=== PATIENT | male | born 1955 | race African-American/Black ===

== ENCOUNTER 2017-12-06 05:39 | Day surgery (SDC) | payer BC ==
--- NOTE | 2017-12-02 12:06 | Opthalmology H&P ---
Ophthalmology H&P H&P Chief Complaint: decreased vision in left eye HPI Vision Affects Ability to: read, drive, manage personal affairs HPI Narrative PATIENT WITH DENSE CATARACT ON LEFT EYE C/O BLURRY VISION DIFFICULTIES DRIVING, READING AND LIGHT SENSITIVITY Exam Visual Acuity: OD 20/25 OS HAND MOTION Tension: OD:14 OS:14 Eye Exam: normal OU: external exam, palpebral fissure-width, marginal reflex distance, levator function, corneas, anterior chambers; findings: lens - LEFT EYE WHITE, fundus exam - POOR VIEW LEFT EYE Assessment/Plan Diagnosis: (1) Cataract mature, total senile Treatment Plan: cataract extraction w/ lens implant Goals of Treatment: improvement of vision, enhance quality of life Attestation Attestation The risks and benefits of the surgery as well as alternative procedures were explained to the patient in detail. Osvaldo Shelton MD Dec 02, 2017 12:06
--- NOTE | 2017-12-02 12:09 | Pre-Procedure Note/Attestation ---
Pre-Procedure Note/Attestation Complete Prior to Procedure Planned Procedure: left Procedure Narrative: CATARACT EXTRACTION WITH IOL IMPLANT LEFT EYE Indications for Procedure Pre-Operative Diagnosis: CATARACT MATURE LEFT EYE Attestation I attest that I discussed the nature of the procedure; its benefits; risks and complications; and alternatives (and the risks and benefits of such alternatives ), prior to the procedure, with the patient (or the patient's legal account manager sales representative). I attest that, if there was a reasonable possibility of needing a blood transfusion, the patient (or the patient's legal account manager sales representative) was given the [facility] standardized written summary, pursuant to the Orlin [place] Blood Safety Act ([place] Health and Safety Code # 1645, as amended). I attest that I re-evaluated the patient just prior to the surgery and that there has been no change in the patient's H&P, except as documented below: Osvaldo Shelton MD Dec 02, 2017 12:09
[~2017-12-06] VITALS: Ht 182.9 cm; Wt 93.0 kg
[2017-12-06] VITALS (7 sets, daily range): BP systolic 111–135; BP diastolic 72–86
[~2017-12-06 05:39] MED LIST: B12 PO; BIOFLEX TABLET1 EACH PO; FISH OIL 500 M1 EAC4 PO; Vit C PO
[2017-12-06 06:23] LABS: BASOPHILS % (AUTO) 1.8 % (0.0-2.0); EOSINOPHILS % (AUTO) 1.2 % (0.0-3.0); HEMATOCRIT 44.6 % (42.0-52.0); HEMOGLOBIN 15.6 G/DL (14.2-18.0); LYMPHOCYTES % (AUTO) 38.2 % (20.0-45.0); MEAN CORPUSCULAR VOLUME 91 FL (80-99); MONOCYTES % (AUTO) 12.9 % (1.0-10.0); NEUTROPHILS % (AUTO) 45.9 % (45.0-75.0); PLATELET COUNT 234 K/UL (150-450); RED BLOOD COUNT 4.89 M/UL (4.70-6.10); RED CELL DISTRIBUTION WIDTH 11.6 % (11.6-14.8); WHITE BLOOD COUNT 4.2 K/UL (4.8-10.8)
[2017-12-06] MEDS: Phenylephrine 10% Opth Soln 5ml LEFT EYE SCH ×3 (06:37→06:57)
[2017-12-06] MEDS: Cyclopentolate 1% Opth Sol 2ml LEFT EYE SCH ×3 (06:37→06:57)
[2017-12-06] MEDS: Tobramycin Op Soln 0.3% 5ml LEFT EYE SCH ×3 (06:37→06:57)
[2017-12-06] MEDS: Diclofenac Sod 0.1% Op Soln LEFT EYE SCH ×3 (06:37→06:57)
[2017-12-06] MEDS: Tropicamide 1% Opth 15ml Soln LEFT EYE SCH ×3 (06:37→06:57)
[2017-12-06] MEDS ORDERED: Lidocaine 4% Amp ONE (06:44)
[2017-12-06] MEDS ORDERED: EPINEPHrine 1mg/1ml Amp ONE (06:44)
[2017-12-06] MEDS ORDERED: Maxitrol Opth Oint 3.5gm ONE (06:44)
[2017-12-06] MEDS ORDERED: Dexamethasone 4mg/ml vial ONE (06:45)
[2017-12-06] MEDS ORDERED: BSS 15ml BTL ONE (06:45)
[2017-12-06] MEDS ORDERED: acetaZOLAMIDE 500mg Inj ONE (06:45)
[2017-12-06] MEDS ORDERED: BSS 500ml btl ONE (06:45)
[2017-12-06] MEDS ORDERED: Sodium Hyaluronate 10 mg/ml 0.85ml ONE (06:46)
[2017-12-06] MEDS ORDERED: Povidone-Iodine 5% opth solution ONE (06:46)
[2017-12-06] MEDS ORDERED: Sodium Hyaluronate 14 mg/ml 0.85ml ONE (06:46)
[2017-12-06 06:47] LABS: ALANINE AMINOTRANSFERASE 31 U/L (12-78); ALBUMIN 3.3 G/DL (3.4-5.0); ALBUMIN/GLOBULIN RATIO 0.9 (1.0-2.7); ALKALINE PHOSPHATASE 89 U/L (46-116); ANION GAP 7 mmol/L (5-15); ASPARTATE AMINO TRANSFERASE 20 U/L (15-37); BILIRUBIN,TOTAL 0.3 MG/DL (0.2-1.0); BLOOD UREA NITROGEN 12 mg/dL (7-18); CALCIUM 8.7 MG/DL (8.5-10.1); CARBON DIOXIDE 25 MMOL/L (21-32); CHLORIDE 108 MMOL/L (98-107); SODIUM 140 MMOL/L (136-145)
[2017-12-06] MEDS ORDERED: Carbachol 0.01% Op Soln 1.5ml vial ONE (06:52)
[2017-12-06] MEDS ORDERED: Proparacaine 0.5% Opth Soln 15ml LEFT EYE ONE (07:00)
[2017-12-06] MEDS ORDERED: Tetracaine 0.5% Opth 4ml Soln LEFT EYE ONE (07:00)
[2017-12-06] MEDS ORDERED: Akten 3.5% 1ml Btl LEFT EYE ONE (07:00)
[2017-12-06] MEDS ORDERED: NS Irrig 1000ml ONE (07:15)
[2017-12-06] MEDS ORDERED: LR 1000ml ONE (07:15)
[2017-12-06] MEDS ORDERED: Midazolam 2mg/2ml Inj ONE (07:15)
[2017-12-06] MEDS ORDERED: Sterile Water Irrig 1000ml IRRIG ONE (07:15)
[2017-12-06] MEDS ORDERED: fentaNYL 100 mcg/2 mL IV ONE (07:15)
[2017-12-06] MEDS ORDERED: Pred Forte 1% Opth Susp 1ml ONE (07:28)
[2017-12-06] MEDS ORDERED: LR 1000ml 1,000 ML IVLG SCH (07:44)
[2017-12-06] MEDS ORDERED: fentaNYL 100 mcg/2 mL IV PRN (07:45)
[2017-12-06] MEDS ORDERED: DiphenhydrAMINE 50mg/ml Inj IVP PRN (07:45)
--- NOTE | 2017-12-06 07:48 | Anethesia Preoperative Eval ---
Anesthesia Pre-op PMH/ROS General Date of Evaluation: Dec 06, 2017 Time of Evaluation: 07:15 Anesthesiologist: Yulissa ASA Score: ASA 1 Mallampati Score Class I : Soft palate, uvula, fauces, pillars visible Class II: Soft palate, uvula, fauces visible Class III: Soft palate, base of uvula visible Class IV: Only hard plate visible Mallampati Classification: Class II Surgeon: Cat Diagnosis: Cataract left eye Surgical Procedure: Cataract extraction with IOL Anesthesia History: none Family History: no anesthesia problems Allergies: Coded Allergies: No Known Allergies (Unverified , 12/02/17) Patient NPO?: Yes NPO Date: Dec 05, 2017 NPO Time: 20:00 Past Medical History Cardiovascular: Denies: HTN, CAD, [place], valve dz, arrhythmia, other Pulmonary: Denies: asthma, COPD, JAHAIRA, other Gastrointestinal/Genitourinary: Denies: GERD, CRI, ESRD, other Neurologic/Psychiatric: Denies: dementia, CVA, depression/anxiety, TIA, other Endocrine: Denies: DM, hypothyroidism, steroids, other HEENT: Reports: cataract (L); Denies: cataract (R), glaucoma, ALATNA (L), ALATNA (R), other Hematology/Immune: Denies: anemia, DVT, bleeding disorder, other Musculoskeletal/Integumentary: Denies: OA, RA, DJD, DDD, edema, other PMH Narrative: Denies PSxH Narrative: No prior surgery Anesthesia Pre-op Phys. Exam Physician Exam Last Vital Signs Date Time Temp Pulse Resp B/P (MAP) Pulse Ox O2 Delivery O2 Flow Rate FiO2 12/06/17 06:45 Room Air 12/06/17 06:40 97.0 55 18 111/72 96 Constitutional: NAD Neurologic: CN 2-12 intact Cardiovascular: RRR, no M/R/G Respiratory: CTA Gastrointestinal: S/NT/ND Airway Exam Mallampati Score: Class II MO: full ROM: full Teeth: intact Anesthesia Pre-op A/P Labs Hematology Test 12/06/17 06:00 White Blood Count 4.2 K/UL (4.8-10.8) L Red Blood Count 4.89 M/UL (4.70-6.10) Hemoglobin 15.6 G/DL (14.2-18.0) Hematocrit 44.6 % (42.0-52.0) Mean Corpuscular Volume 91 FL (80-99) Mean Corpuscular Hemoglobin 32.0 PG (27.0-31.0) H Mean Corpuscular Hemoglobin Concent 35.1 G/DL (32.0-36.0) Red Cell Distribution Width 11.6 % (11.6-14.8) Platelet Count 234 K/UL (150-450) Mean Platelet Volume 6.4 FL (6.5-10.1) L Neutrophils (%) (Auto) 45.9 % (45.0-75.0) Lymphocytes (%) (Auto) 38.2 % (20.0-45.0) Monocytes (%) (Auto) 12.9 % (1.0-10.0) H Eosinophils (%) (Auto) 1.2 % (0.0-3.0) Basophils (%) (Auto) 1.8 % (0.0-2.0) Chemistry Test 12/06/17 06:00 Sodium Level 140 MMOL/L (136-145) Potassium Level 4.0 MMOL/L (3.5-5.1) Chloride Level 108 MMOL/L (98-107) H Carbon Dioxide Level 25 MMOL/L (21-32) Anion Gap 7 mmol/L (5-15) Blood Urea Nitrogen 12 mg/dL (7-18) Creatinine 1.0 MG/DL (0.55-1.30) Estimat Glomerular Filtration Rate > 60 mL/min (>60) Glucose Level 104 MG/DL (74-106) Calcium Level 8.7 MG/DL (8.5-10.1) Total Bilirubin 0.3 MG/DL (0.2-1.0) Aspartate Amino Transf (AST/SGOT) 20 U/L (15-37) Alanine Aminotransferase (ALT/SGPT) 31 U/L (12-78) Alkaline Phosphatase 89 U/L (46-116) Total Protein 6.8 G/DL (6.4-8.2) Albumin 3.3 G/DL (3.4-5.0) L Globulin 3.5 g/dL Albumin/Globulin Ratio 0.9 (1.0-2.7) L Studies Pre-op Studies: EKG - SB Risk Assessment & Plan Assessment: Healthy male for cataract extraction Plan: MAC Status Change Before Surgery: No Pre-Antibiotics Drug: None Orlin Duenas MD Dec 06, 2017 07:48
--- NOTE | 2017-12-06 07:49 | Immediate Post-Op Evaluation ---
Immediate Post-Op Evalulation Immediate Post-Op Evalulation Procedure: Cataract extraction with IOL left eye Date of Evaluation: Dec 06, 2017 Time of Evaluation: 08:15 IV Fluids: 475 Blood Pressure Systolic: 126 Blood Pressure Diastolic: 74 Pulse Rate: 54 Respiratory Rate: 20 O2 Sat by Pulse Oximetry: 100 Temperature (Fahrenheit): 98.2 Pain Score (1-10): 0 Nausea: No Vomiting: No Complications No complication Patient Status: awake, patent, none Hydration Status: adequate Drug: None Orlin Duenas MD Dec 06, 2017 07:49
--- NOTE | 2017-12-06 08:14 | 48 Hour Post Anesthesia Eval ---
Post Anesthesia Evaluation Procedure: Cataract extraction with IOL left eye Date of Evaluation: Dec 06, 2017 Time of Evaluation: 08:30 Blood Pressure Systolic: 125 0: 73 Pulse Rate: 55 Respiratory Rate: 18 O2 Sat by Pulse Oximetry: 100 Airway: patent Nausea: No Vomiting: No Pain Intensity: 0 Hydration Status: adequate Cardiopulmonary Status: Stable Mental Status/LOC: patient returned to baseline Follow-up Care/Observations: As per surgery Post-Anesthesia Complications: No anesthetic complication Follow-up care needed: N/A Orlin Duenas MD Dec 06, 2017 08:14
[2017-12-06] MEDS ORDERED: acetaZOLAMIDE 500mg Sequel ORAL SCH (08:45)
--- NOTE | 2017-12-06 12:01 | Brief Operative Note ---
Immediate Post Operative Note Operative Note Chief Complaint: blurry vision Pre-op Diagnosis: CATARACT MATURE LEFT EYE Procedure: phaco with IOL Post-op Diagnosis: Pseudophakia Post-op Diagnosis: same as pre-op Findings: consistent w/pre-op dx studies Surgeon: Cat Anesthesiologist: Yulissa Anesthesia: MAC Specimen: none Complications: none Condition: stable Fluids: LR Estimated Blood Loss: none Drains: none Implant(s) used?: Yes Osvaldo Shelton MD Dec 06, 2017 12:01
--- NOTE | 2017-12-06 12:47 | Operative Note - PDOC ---
Operative Note Operative Note Date of Operation/Procedure: Dec 06, 2017 Chief Complaint: blurry vision Pre-op Diagnosis: CATARACT MATURE LEFT EYE Procedure: phaco with IOL Post-op Diagnosis: Pseudophakia Post-op Diagnosis: same as pre-op Operative Findings: consistent w/pre-op dx studies Surgeon: Cat Anesthesiologist: Yulissa Anesthesia: MAC Specimen: none Complications: none Condition: stable Fluids: LR Estimated Blood Loss: none Drains: none Implant(s) used?: Yes Indications for Procedure cataract Description of Procedure This patient has been complaining visually significant cataract in the affected eye with the best corrected visual acuity under moderate glare conditions worse. The patient complains of difficulties with glare in performing activities of daily living and wants to manage personal affairs with comfort and accuracy and see well enough to move with safety at home and outdoors. The risks, benefits and alternatives of the procedure were discussed with the patient in the office prior to scheduling surgery. All questions from the patient were answered after the surgical procedure was explained in detail. The risks of the procedure as explained to the patient include, but are not limited to, pain, infection, bleeding, loss of vision, retinal detachment, need for further surgery, loss of lens nucleus, double vision, etc. Alternative procedures were discussed which include, to do nothing or seek a second opinion. Informed consent for this procedure was obtained from the patient. The patient was referred to a primary care physician for a cardiopulmonary clearance prior to surgery, after proper evaluation was done patient was properly scheduled for outpatient surgery. The patient was brought to the operating room where the anesthesiologist established I.V. lines and cardiac monitoring leads. Mild intravenous sedation was administered. The patient was then prepared with a 5% solution of povidone -iodine to the conjunctival fornix and lashes, and a 5% solution of povidone- iodine to the lids and periorbital skin. The patient was then draped in the usual sterile fashion. A lid speculum was then placed in the operative eye. A keratome blade was then used to create a biplanar incision into the anterior chamber. Viscoelastics was then instilled into the anterior chamber. A capsulorrhexis was then fashioned with an utrata forceps. BSS and a G-27 cannula were then used to hydrodissect and hydro delineate the lens. Paracentesis incision was made at 3 o'clock with sharp blade. The phacoemulsification unit, after being properly adjusted and tested, was then used to emulsify the nucleus folowed by aspiration and irrigation of residual cortical material. Healon was then instilled into the anterior chamber. The corneal wound was then enlarged to the size of the optic with the jesse keratome blade. The intraocular lens was then inspected for right power and size and thought to be satisfactory. Then the lens was gently placed in the capsular bag. Positioning within the capsular bag was confirmed by direct visualization. Optic centration was accomplished with a Sinskey hook. Viscoelastics was removed from the anterior chamber using the irrigation and aspiration unit. The corneal wound was then tested for leaks and none were found. The lid speculum were then removed. Sponge and needle counts were correct. An eye patch and shield were placed over the operative eye. The patient was taken to the recovery room in stable condition. There were no complications. The patient tolerated the procedure well. The patient was then transferred to the ambulatory surgery unit in stable and satisfactory condition , was given detailed written instructions and asked to follow up in the office the next day. Osvaldo Shelton MD Dec 06, 2017 12:47
--- NOTE | 2017-12-06 14:58 | Cardiology Report ---
APPROVED REPORT EKG Measurement Heart [id number] Sinus bradycardia Possible Anterior infarct, age undetermined Abnormal ECG st segment elelvation likely early repolarization
--- NOTE | 2017-12-08 19:00 | Pre-op HX & Phy Repo 2 SIG ---
DATE OF ADMISSION: 12/06/2017 DATE OF EVALUATION: December 06, 2017. REASON FOR EVALUATION: I was asked by Dr. Osvaldo Shelton to see this 62-year-old male, who going for elective surgery on the left eye. The patient has a cataract, left eye. Please see Ophthalmology History and Physical by Dr. Osvaldo Shelton. The patient was evaluated. Chart was reviewed. Laboratory and EKG were reviewed. PAST MEDICAL HISTORY: Denies history of chest pain, palpitation, or heart attack. Denies history of diabetes mellitus. No history of hypertension. No thyroid problem. No stroke or seizures. Denies history of GI bleeding, heartburn, or hepatitis. No renal failure. No anemia. The patient has benign prostatic hypertrophy, symptomatic. PAST SURGICAL HISTORY: None. FAMILY HISTORY: Mother had diabetes, she is alive. Father from heart attack. ALLERGIES: Not known. MEDICATIONS: Present medications, multivitamin. HABITS: The patient smoked for more than 14 years and drinks alcohol. No street drugs. PHYSICAL EXAMINATION: GENERAL: Alert, well-developed male in his 60s, in no acute distress. VITAL SIGNS: Blood pressure 111/72, temperature 97, pulse 65, respirations 18, and O2 saturation 96%. LYMPH NODES: Not enlarged. SKIN: Warm. HEENT: Head, normocephalic and atraumatic. Ears, clear. No discharge. Eyes, full description per Dr. Osvaldo Shelton. Mouth clear and moist. No dentures. NECK: No jugular venous distention. Carotids artery +2. Trachea midline. CHEST: No deformity or asymmetry. LUNGS: Clear to auscultation to percussion. No rales or rhonchi. HEART: Sinus bradycardia. No ectopy. No murmur. No S3, S4. ABDOMEN: Soft, benign. Liver and spleen not enlarged. No rebound. EXTREMITIES: No peripheral edema. No varicose vein. No calf tenderness. GENITOURINARY: Normal for gender. The patient has nocturia due to benign prostatic hypertrophy. NERVOUS SYSTEM: No asymmetry. No tremor. No nystagmus. LABORATORY AND DIAGNOSTIC DATA: Last p.o. intake 7 p.m. 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 Laboratory, sodium 140, potassium 4.0, glucose 104. Calcium 8.7. Albumin 3.3. CBC is normal. See copy in the chart. IMPRESSION: 1. Cataract, left eye. 2. Sinus bradycardia, anterior myocardial infarction on EKG, clinically symptomatic. 3. Benign prostatic hypertrophy. 4. Smoker for more than 40 years. PLAN: Cataract extraction with intraocular lens implant per Dr. Osvaldo Shelton. CONCLUSION: The patient's EKG shows sinus bradycardia and anterior wall AR. The patient is asymptomatic. He has symptoms of benign prostatic hypertrophy. Laboratory in normal limits. The patient did not eat or drink from 7 p.m. yesterday. The patient's condition optimized for surgery. Thank you very much, Dr. Shelton, for privilege to participate in presurgical care of this interesting patient. Mylene Galan M.D. DR: Adrien JOB#: [id number] CC:
== END 2017-12-06 09:15 | disposition home or self-care (01) ==
LOC: SUR 05:39
DX: H25.89 Other age-related cataract (principal); R00.1 Bradycardia, unspecified; N40.0 Benign prostatic hyperplasia without lower urinary tract symptoms; Z87.891 Personal history of nicotine dependence
CPT/HCPCS: 36415; 66984; 80053; 85025; 93005; J0171; J1100; J1120; J2250; J3010; J3370; V2632; 94003; 94150